=== PATIENT | male | born 1960 | race Asian ===

== ENCOUNTER 2023-08-19 07:53 | Emergency (ER) | payer OTHER, MEDICARE, SELFPAY ==
[2023-08-19 07:58] LABS: Glucose - Point of Care 165 mg/dl (70-99)
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
[2023-08-19 08:00] VITALS: BP 147/85; BMI 23.3
[2023-08-19 08:01] VITALS: BP 147/85
[2023-08-19] MEDS: NSS 500 IV (08:37)
[2023-08-19 08:42] LABS: % Eosinophils 3.4 % (0-6); % Immature Granulocytes 0.3 % (0-0.5); % Lymphocytes 19.7 % (20.5-51.1); % Monocytes 5.3 % (1.7-9.3); % Neutrophils 70.3 % (42.2-75.2); Absolute Basophils 0.1 10^3/uL (0-0.2); Absolute Eosinophils 0.2 10^3/uL (0-0.7); Absolute Lymphocytes 1.2 10^3/uL (1.2-3.4); Absolute Monocytes 0.3 10^3/uL (0.1-0.6); Absolute Neutrophils 4.4 10^3/uL (1.4-6.5); Hematocrit 42.4 % (39.0-52.0); Mean Corp Hgb Conc. 35.4 g/dL (33.0-37.0); Mean Corpuscular Hgb 31.4 pg (27.0-31.0); Mean Corpuscular Volume 88.9 fL (80.0-94.0); Mean Platelet Volume 9.2 fL (7.4-10.4); Nucleated Red Blood Cells % 0 % (-); Platelet Count 211 10^3/uL (130-400); Red Blood Cell Count 4.77 10^6/uL (4.70-6.10); Red Cell Dist. Width 11.5 % (11.5-14.5); White Blood Cell Count 6.3 10^3/uL (4.8-10.8)
[2023-08-19 09:03] VITALS: BP 139/67
[2023-08-19 09:39] LABS: ALT (SGPT) 23 U/L (0-50); AST (SGOT) 23 U/L (17-59); Albumin 4.5 g/dl (3.5-5.0); Alkaline Phosphatase 58 U/L (38-126); Blood Urea Nitrogen 19 mg/dl (9-20); Carbon Dioxide 28 mmol/L (22-30); Chloride 100 mmol/L (98-107); Estimated Creatinine Clearance 90 ml/min; Glucose 163 mg/dl (70-99); Potassium 4.4 mmol/L (3.5-5.1); Sodium 134 mmol/L (135-145); Total Bilirubin 0.9 mg/dl (0.2-1.3); Total Protein 7.3 g/dl (6.3-8.2); eGFR > 60.00
[2023-08-19 10:20] VITALS: BP 144/68
[2023-08-19 10:42] VITALS: BP 144/68
== END 2023-08-19 10:44 | disposition home or self-care (01) ==
LOC: EMR 07:53
PROVIDERS: EMERGENCY PHYSICIAN Student in an Organized Health Care Education/Training Program; FAMILY PHYSICIAN Internal Medicine
DX: R55 Syncope and collapse (principal); V99.XXXA Unspecified transport accident, initial encounter; Y92.410 Unspecified street and highway as the place of occurrence of the external cause
CPT/HCPCS: 99283; 96360; 80053; 82962; 85025; 93005

== ENCOUNTER → 2024-09-21 13:56 | Outpatient (REF) | payer MEDICARE, OTHER, SELFPAY | LOC: RCS 13:56 | PROVIDERS: ATTENDING PHYSICIAN Student in an Organized Health Care Education/Training Program | DX: R55 Syncope and collapse (principal) | CPT/HCPCS: 93017 ==

== ENCOUNTER 2024-09-21 16:09 | Inpatient (IN) | payer MEDICARE, OTHER, SELFPAY ==
[2024-09-21] VITALS (14 sets, daily range): BP systolic 115–174; BP diastolic 57–124; BMI 25.1; BMI 24.8
--- NOTE | 2024-09-21 15:25 | ED.GENMED ---
History of Present Illness
<Uche Tejeda PA-C - Last Filed: 09/21/24 16:02>
General
Chief Complaint: Cardiac Symptoms
Source: patient
Time Seen by Provider: 09/21/24 15:17
History of Present Illness
History of Present Illness:
64-year-old male with history of hypertension hyperlipidemia and prediabetes presents in referral from cardiology services. He was at stress test today and failed the stress test. I was notified by kids activities coach, Dr. Neff that he had [address]
depression during his stress test. He denies chest pain. He was given a full aspirin. No other complaints at this time
Past History
<Uche Tejeda PA-C - Last Filed: 09/21/24 16:02>
Past History
ED Past Medical History: HTN
ED Past Surgical History: None
Social History
Tobacco: Non-smoker
Alcohol: None
Phy Exam
<Uche Tejeda PA-C - Last Filed: 09/21/24 16:02>
Physical Exam
Physical Exam:
General: Well-appearing male no acute respiratory distress
HEENT: Normocephalic atraumatic
Heart: Regular rate and rhythm
Lungs: Clear no wheeze
Extremities: No cyanosis or edema
Course
<Uche Tejeda PA-C - Last Filed: 09/21/24 16:02>
Orders/Labs/Results
Orders:
Orders
09/21/24 15:18
Electrocardiogram (*1) Urgent
Reason for Study: Chest Pain
EKG- Treatment ONCE
09/21/24 15:20
Complete Blood Count/With Diff Urgent
Comprehensive Metabolic Panel Urgent
Glycohemoglobin (HgbA1c) Urgent
PTT Urgent
Prothrombin Time Urgent
Troponin I Urgent
09/21/24 15:28
Heparin 4,000 units IV NOW STA
09/21/24 15:[address] Non Medication Order As Directed
Physician Order: PTT 6 hours after initial start of Heparin infusion
09/21/24 15:30
Heparin [id number] Units/250 ml 25,000 units in 250 ml IV PER PROTOCOL
Weight to be used for heparin protocol in kilograms (kg):: 84
Protocol:: Cardiac Tx/Acute Coronary
PTT Goal Range to be used:: PTT 73 to 111 seconds
Order type:: Initial
INITIAL Infusion Dose (UNITS/KG/hr) & then follow protocol:: 12 units/kg/hr
Infusion Dose in UNITS/hr & then follow protocol (UNITS/hr):: 1,000
INFUSION RATE in mL/hr & then follow protocol (mL/hr):: 10
PTT less than or equal to 64 seconds:: Increase rate by 200 units/hr (+ 2 mL/hr)
PTT 64.1 to 72.9 seconds:: Increase rate by 100 units/hr (+ 1 mL/hr)
PTT 73 to 111 seconds:: Target Range. No change in rate.
PTT 111.1 to 130.9 seconds:: Decrease rate by 100 units/hr (- 1 mL/hr)
PTT 131 to 199.9 seconds:: HOLD for 1 hr. Then decrease rate by 200 units/hr (- 2 mL/hr)
PTT greater than or equal to 200 seconds:: HOLD for 2 hrs & Notify Provider. Then decrease by 200 units/hr (-
2 mL/hr)
Lab follow-up:: Each change, PTT q6h until 2 consecutive are therapeutic. Then PTT
daily.
09/21/24 15:31
Admit/Transfer Patient As Directed
Co-Sign Provider:
Level of Care: Inpatient admission
Assign to:: IVU
Physician / Group: CBC
Diagnosis: ACS
Reason for Hospitalization: ACS, requiring cardiac catherization
Expected length of stay greater than two midnights?: Yes
ELOS- Estimated Length of Stay in days: 3
I certify the patient meets the requirements for IP care: Yes
09/21/24 15:32
PRN Pain Medication Management As Directed
May give lesser potent ordered pain med per pt: Yes
preference::
Protocol:: Medication orders for pain may be administered in a
manner that supports deferring to patient preference
when the pt is:
- Requesting an ordered lesser potent pain medication.
Least to most potent pain medications are defined
as: acetaminophen < NSAID < tramadol < opioids
(morphine, oxycodone, hydromorphone).
- Requesting a lesser dose of the same medication IF
ORDERED.
- Requesting a less intrusive route of administration
if both routes are prescribed by the provider (PO <
IV).
09/21/24 15:33
Code Status As Directed
Resuscitation Status: Full Code
09/21/24 15:49
Add On- LAB Routine
Tests Added?: [email or web address]
Abnormal Lab Results
09/21/24
15:20
RBC 4.52 L 10^6/uL
(4.70-6.10)
MCH 31.2 H pg
(27.0-31.0)
Eosinophils % 6.3 H %
(0-6)
BUN 22 H mg/dl
(9-20)
Glucose 122 H mg/dl
(70-99)
Albumin 5.1 H g/dl
(3.5-5.0)
09/21/24 15:20
09/21/24 15:20
Vital Signs
Initial and Last Documented VS:
Initial Vital Signs
Temp Pulse Resp BP Pulse Ox
98 F 74 16 148/70 99
09/21/24 15:11 09/21/24 15:11 09/21/24 15:11 09/21/24 15:11 09/21/24 15:11
Last Documented Vital Signs
Temp Pulse Resp BP Pulse Ox
98 F 79 14 148/70 99
09/21/24 15:11 09/21/24 15:18 09/21/24 15:18 09/21/24 15:11 09/21/24 15:11
<Paulino Estrada, DO - Last Filed: 09/21/24 15:48>
Orders/Labs/Results
Orders:
Orders
09/21/24 15:18
Electrocardiogram (*1) Urgent
Reason for Study: Chest Pain
EKG- Treatment ONCE
09/21/24 15:20
Complete Blood Count/With Diff Urgent
Comprehensive Metabolic Panel Urgent
Glycohemoglobin (HgbA1c) Urgent
PTT Urgent
Prothrombin Time Urgent
Troponin I Urgent
09/21/24 15:28
Heparin 4,000 units IV NOW STA
09/21/24 15:[address] Non Medication Order As Directed
Physician Order: PTT 6 hours after initial start of Heparin infusion
09/21/24 15:30
Heparin 69702 Units/250 ml 25,000 units in 250 ml IV PER PROTOCOL
Weight to be used for heparin protocol in kilograms (kg):: 84
Protocol:: Cardiac Tx/Acute Coronary
PTT Goal Range to be used:: PTT 73 to 111 seconds
Order type:: Initial
INITIAL Infusion Dose (UNITS/KG/hr) & then follow protocol:: 12 units/kg/hr
Infusion Dose in UNITS/hr & then follow protocol (UNITS/hr):: 1,000
INFUSION RATE in mL/hr & then follow protocol (mL/hr):: 10
PTT less than or equal to 64 seconds:: Increase rate by 200 units/hr (+ 2 mL/hr)
PTT 64.1 to 72.9 seconds:: Increase rate by 100 units/hr (+ 1 mL/hr)
PTT 73 to 111 seconds:: Target Range. No change in rate.
PTT 111.1 to 130.9 seconds:: Decrease rate by 100 units/hr (- 1 mL/hr)
PTT 131 to 199.9 seconds:: HOLD for 1 hr. Then decrease rate by 200 units/hr (- 2 mL/hr)
PTT greater than or equal to 200 seconds:: HOLD for 2 hrs & Notify Provider. Then decrease by 200 units/hr (-
2 mL/hr)
Lab follow-up:: Each change, PTT q6h until 2 consecutive are therapeutic. Then PTT
daily.
09/21/24 15:31
Admit/Transfer Patient As Directed
Co-Sign Provider:
Level of Care: Inpatient admission
Assign to:: IVU
Physician / Group: CBC
Diagnosis: ACS
Reason for Hospitalization: ACS, requiring cardiac catherization
Expected length of stay greater than two midnights?: Yes
ELOS- Estimated Length of Stay in days: 3
I certify the patient meets the requirements for IP care: Yes
09/21/24 15:32
PRN Pain Medication Management As Directed
May give lesser potent ordered pain med per pt: Yes
preference::
Protocol:: Medication orders for pain may be administered in a
manner that supports deferring to patient preference
when the pt is:
- Requesting an ordered lesser potent pain medication.
Least to most potent pain medications are defined
as: acetaminophen < NSAID < tramadol < opioids
(morphine, oxycodone, hydromorphone).
- Requesting a lesser dose of the same medication IF
ORDERED.
- Requesting a less intrusive route of administration
if both routes are prescribed by the provider (PO <
IV).
09/21/24 15:33
Code Status As Directed
Resuscitation Status: Full Code
09/21/24 15:49
Add On- LAB Routine
Tests Added?: [email or web address]
Abnormal Lab Results
09/21/24
15:20
RBC 4.52 L 10^6/uL
(4.70-6.10)
MCH 31.2 H pg
(27.0-31.0)
Eosinophils % 6.3 H %
(0-6)
BUN 22 H mg/dl
(9-20)
Glucose 122 H mg/dl
(70-99)
Albumin 5.1 H g/dl
(3.5-5.0)
09/21/24 15:20
09/21/24 15:20
Vital Signs
Initial and Last Documented VS:
Initial Vital Signs
Temp Pulse Resp BP Pulse Ox
98 F 74 16 148/70 99
09/21/24 15:11 09/21/24 15:11 09/21/24 15:11 09/21/24 15:11 09/21/24 15:11
Last Documented Vital Signs
Temp Pulse Resp BP Pulse Ox
98 F 79 14 148/70 99
09/21/24 15:11 09/21/24 15:18 09/21/24 15:18 09/21/24 15:11 09/21/24 15:11
<Uche Tejeda PA-C - Last Filed: 09/21/24 16:02>
MDM/Problems Addressed
Differential Diagnosis Includes:
Failed stress test with ST depression during stress test. Patient denies chest pain. Vital signs are stable. Check labs EKG pending. Cardiology aware he is here
<GARY Arora Last Filed: 09/21/24 16:02>
*Critical Care Note
Total Time (30-74mins, 75-104mins- exclusive of procedures): Not Applicable
<GARY Arora Last Filed: 09/21/24 16:02>
Update Note
Update Note:
Troponin 0.014. Patient remained symptom-free. Discussed with emergency room attending. Will admit to cardiology service, heparin started
ED Attending Note
<Uche Tejeda PA-C - Last Filed: 09/21/24 16:02>
-
Portions of this chart may have been created with voice recognition software.� Occasional wrong word or��sound alike� substitutions may have occurred due to the inherent limitations of voice recognition software.
<Paulino Estrada DO - Last Filed: 09/21/24 15:48>
ED Attending Note
Patient seen and examined by attending physician: Yes
I performed the substantive portion of visit, reviewed & personally made and approve the management plan that is documented in note by myself or UDAY.: Yes
ED Attending Note:
I have seen and evaluated the patient with a [id number] encounter. I have spoken to the advance practicer provider and involved in the medical history, the physical exam, medical decision making.
Evaluation and management service: agree unless noted differently below.
Results interpretation: agree unless noted differently below.
Focused HPI: 64-year-old male presenting for evaluation of failed stress test. Cardiology walked over indicating the patient will require catheterization. Patient has been complaining of chest discomfort and exertion with pickleball. He
apparently failed his stress test. Patient currently symptom-free
Physical exam: Sitting bed comfortably. Heart regular rate and rhythm
Medical Decision Making: Per cardiology, will start heparin and admit to Warehouse Team Leader
Discharge Plan
Departure
Patient Disposition: Admit
Date of Disposition: 09/21/24
Time of Disposition: 16:01
Presentation/result/management discussed w/ accepting /: Aishwarya
Discharge Problem:
Failed stress test
Referrals:
Jordan Gotti MD [Family Provider] -
Interventions
Interventions:
*Risk Screen - Suicide Last Done: 09/21/24 15:12
*General Assessment Last Done: 09/21/24 15:24
*Neglect/Abuse Screening Last Done: 09/21/24 15:12
*ED- Fall Risk Assessment Last Done: 09/21/24 15:24
*ED COVID-19 Vaccine History Last Done: 09/21/24 15:24
ED- Pulmonary Assessment Last Done: 09/21/24 15:23
ED- Cardiac Assessment Last Done: 09/21/24 15:23
Discharge Date and Time
Print Language: LATVIAN
[2024-09-21 15:28] LABS: % Basophils 0.8 % (0-2); % Eosinophils 6.3 % (0-6); % Immature Granulocytes 0.3 % (0-0.5); % Lymphocytes 37.7 % (20.5-51.1); % Monocytes 7.7 % (1.7-9.3); % Neutrophils 47.2 % (42.2-75.2); Absolute Basophils 0.1 10^3/uL (0-0.2); Absolute Eosinophils 0.4 10^3/uL (0-0.7); Absolute Lymphocytes 2.4 10^3/uL (1.2-3.4); Absolute Monocytes 0.5 10^3/uL (0.1-0.6); Hematocrit 39.7 % (39.0-52.0); Hemoglobin 14.1 g/dL (13.0-18.0); Mean Corp Hgb Conc. 35.5 g/dL (33.0-37.0); Mean Corpuscular Hgb 31.2 pg (27.0-31.0); Mean Corpuscular Volume 87.8 fL (80.0-94.0); Mean Platelet Volume 9.8 fL (7.4-10.4); Nucleated Red Blood Cells % 0 % (-); Platelet Count 220 10^3/uL (130-400); Red Blood Cell Count 4.52 10^6/uL (4.70-6.10); Red Cell Dist. Width 11.7 % (11.5-14.5); White Blood Cell Count 6.4 10^3/uL (4.8-10.8)
--- NOTE | 2024-09-21 15:36 | HPS.HSE ---
Addendum entered and electronically signed by Varinder Neff MD 09/21/24 16:04:
64 yo male with PMH of HTN, dyslipidemia, DM presents to ED following high risk stress test. He had complained of pre-syncope and diaphoresis with exercise, and was referred for ETT. At rest, he has no complaints. Exam with RRR, no murmurs, no
edema. ETT: high risk DTS -11, with up to 4mm ST depression. Hgb and Cr are normal.
ACS/unstable angina. ASA 325mg, heparin drip.
-threat to life
-discussed with interventional cardiology: plan for cath today
Original Note:
Family Physician
-
Family Physician: Jordan Gotti
Primary Payroll And Benefits Analyst: Dr. Leonard Gaston
Chief Complaint
-
Shortness of breath
History of Present Illness
Gideon Claudio is a 64-year-old male with NIDDM, dyslipidemia and hypertension who presented for cardiovascular evaluation today. He was scheduled for an ETT after being evaluated by Dr. Estrada in the office for pre-syncope. He endorsed having more
significant sweating, lightheadedness with visual changes, rapid heart rate, and shortness of breath while playing pickle ball. Today, ETT revealed > [address] depression inferior with associated diaphoresis and shortness of breath. He was
referred to the ER for evaluation and admission. He did not have any chest pain.
Medical History
Past Medical History
Past Medical History: Reports HTN, Hypercholesterolemia and NIDDM
Past Surgical History: Reports Orthopedic
Social History
Tobacco: Non-smoker
Alcohol: None
Drug: None
Personal: Single
Employment: Retired
Family History
Family History: Not pertinent (Denies early CAD or SCD.)
Allergies / Home Medications
Allergies reflects when Allergies were last updated in [employer].
Home Medications with original date entered in [employer]
Allergy/Medication List:
Allergies:
Penicillin caused nausea and vomiting
Home medication list:
Lisinopril 10 mg daily
Atorvastatin 10 mg daily
Review of Systems
-
History Source: Patient
A 12 point ROS was completed and negative except as noted: Yes
Constitutional: Reports No Symptoms
EENT: Reports No Symptoms
Respiratory: Reports See HPI
Cardiac: Reports No Symptoms
Abdomen/GI: Reports No Symptoms
: Reports No Symptoms
Musculoskeletal: Reports No Symptoms
Neurological: Reports No Symptoms
Endocrine: Reports No Symptoms
Hematologic/Lymphatic: Reports No Symptoms
Psych: Reports No Symptoms
Physical Exam
Vital Signs
Vital Signs
Temp Pulse Resp BP Pulse Ox
98 F 79 14 148/70 99
09/21/24 15:11 09/21/24 15:18 09/21/24 15:18 09/21/24 15:11 09/21/24 15:11
Physical Exam
General: Well Developed, Well Nourished, No Apparent Distress and Comfortable
HEENT: NormoCephalic, Anicteric and Moist mucous membranes
Respiratory: Clear and Non Labored Respirations
Cardiac: S1/S2 and Regular Rhythm; No Peripheral Edema
Breast: Deferred by me
GI: Soft, Non Tender, Non Distended and Normal Bowel Sounds
Rectal: Deferred by Provider
Genito-urinary: No costovertebral tender
Musculoskeletal: No Clubbing, No Cyanosis and No Edema
Skin: Warm and Dry
Neuro: AO x 3
Hematologic/Lymphatic: No Lymphadenopathy
Psych: Calm and Intact Judgment/Insight
Laboratory Results
-
09/21/24 15:20
Data Reviewed
-
Diagnostic Radiology: Report Reviewed by me (Sinus rhythm, rate 75)
Lab Data: Labs Reviewed by me
Old Records: Reviewed
Impression/Plan
-
I/P: 64M with NIDDM, dyslipidemia, & HTN presented for ETT and had >3mm of inferior ST depression
Primary under presser: Dr. Estrada
Abnormal ETT, symptomatic with shortness of breath and diaphoresis
-Severe finding, threat to life
-ASA 324 given post stress test
-Hgba1c pending
-Cardiac catheterization today
-Echocardiogram
Hypertension
-Significantly elevated with exercise during ETT
-Follow, may need increase in medical therapy
Dyslipidemia
-LDL 55 (08/2023), increase to atorvastatin 20mg
Diabetes
-Hgba1c was 6.5% (11/2023), improved to 5.9% (02/2024)
[2024-09-21 15:44] LABS: PT 13.5 Sec (11.4-14.6)
[2024-09-21] MEDS: HEPARIN 4000 UNITS IV (15:46)
[2024-09-21 15:47] LABS: APTT 26.8 Sec (23.4-35.0)
[2024-09-21 15:52] LABS: Troponin I 0.014 ng/ml
[2024-09-21 15:57] LABS: ALT (SGPT) 30 U/L (0-50); AST (SGOT) 29 U/L (17-59); Albumin 5.1 g/dl (3.5-5.0); Alkaline Phosphatase 50 U/L (38-126); Blood Urea Nitrogen 22 mg/dl (9-20); Calcium 9.3 mg/dl (8.4-10.2); Carbon Dioxide 25 mmol/L (22-30); Chloride 103 mmol/L (98-107); Estimated Creatinine Clearance 89 ml/min; Glucose 122 mg/dl (70-99); Potassium 4.9 mmol/L (3.5-5.1); Sodium 140 mmol/L (135-145); Total Bilirubin 0.9 mg/dl (0.2-1.3); Total Protein 7.7 g/dl (6.3-8.2); eGFR > 60.00
[2024-09-21 16:44] LABS: ACT-LR - POC 335 Seconds (116-155)
--- NOTE | 2024-09-21 17:00 | CM ---
Telephone call to [facility] to check if they have Brilinta 90 mg po bid in stock. [facility] does not have Brilinta is stock. They would have to order it and it will not be in until Tuesday if ordered today. Telephone call to [facility] to check on co-pay for Brililnta. His first script would be $422.60 because of the deductible. After he mets his deductible his co-pay would be $105.60 a month. The [facility] [employer] [facility] [place] has Brilinta in stock and will need
a paper script to go with him to get the medication if he is going on Brilinta.
[2024-09-21 17:12] LABS: ACT-LR - POC 308 Seconds (116-155)
--- NOTE | 2024-09-21 18:15 | ITS.CL.PN ---
Addendum entered and electronically signed by Leonard Gaston MD 09/21/24 19:06:
Copy to: Dr. Leonard Estrada MD, PhD (instrument panel assembler); Sandra Gotti MD (PCP)
Original Note:
[facility] - Procedure Note
Procedure
Procedure Note:
CARDIAC CATHETERIZATION REPORT
Date of Procedure: 09/21/2024
Referring: Dr. Wander Neff MD, PhD
Indication: anginal chest pain, high risk stress test
PROCEDURE(S)
1. left heart catheterization
2. coronary angiography
3. iFR LAD
4. IVUS LAD
5. PCI with FADI to LAD
ACCESS: 6F right radial artery (closure: radial band)
CATHETERS
1. 6F JR4
2. 6F JL4
3. 6F XB3.5 guide
MODERATE SEDATION: 90 minutes of moderate sedation was utilized. An independent medical billing manager was present to assist with and help manage the patient's level of consciousness and physiologic status.
HEMODYNAMIC DATA
LV 132/2 (EDP 11) mmHg
AO 136/71 (mean 96) mmHg
CORONARY ANGIOGRAPHY
Dominance: Right
LM: Large, normal
LAD: Large vessel giving rise to a moderate caliber D1 and moderate caliber D2. There is a focal 40% stenosis in the proximal LAD before the D1. There is a long segment of moderate disease spanning from the D1 takeoff distally approximately 20 mm.
There is a second long segment of moderate disease spanning from just after the takeoff of the D2 distally approximately 20 mm. There is moderate ostial disease of the D1. The LAD was further assessed by iFR.
LCx: Moderate caliber vessel giving rise to a moderate caliber branching OM1, small OM2,and small LPL branch. There is diffuse disease in the proximal OM1 and a focal 50% stenosis just before the vessel bifurcates.
RCA: Moderate caliber vessel giving rise to a small RPDA, small RPL1, and large RPL2. There is a focal 50% stenosis in the mid body of the small RPL1.
iFR of LAD
An Omni wire was flushed and zeroed outside the body and then advanced to the left main. The wire introducer was removed and the catheter flushed with saline, after which pressure of the wire and guide were normalized. The wire was advanced to the
distal LAD and iFR recorded at 0.70. iFR pullback was performed noting a focal pattern with reduction of iFR to 0.80 after crossing the distal segment of disease and return to 1.0 after crossing the proximal segment of disease suggesting that the
proximal segment of disease is hemodynamically significant. On return to the left main, iFR appropriately normalized to ~1.0, confirming lack of wire drift.
IVUS guided PCI with FADI to proximal to mid LAD
Heparin was given to achieve ACT greater than 300. A Runthrough coronary wire was placed in the distal LAD and a protection BMW wire in the D1. Initial lesion preparation was performed with a 2.0 semicompliant balloon after which the IVUS catheter
was unable to pass. Additional lesion preparation was performed with a 2.5 mm noncompliant balloon after which IVUS was successfully performed demonstrating a 3.0 mm distal reference vessel diameter in the mid LAD and a 3.75 mm proximal reference
diameter in the proximal LAD. A 3.0 x 30 mm [place] frontier drug-eluting stent was delivered and deployed at nominal pressure followed by rewiring of the D1 through stent struts which required a Whisper wire and was achieved with some difficulty. The
proximal LAD was then stented with an overlapping 3.5x15 mm [place] frontier drug-eluting stent. Rewiring of the D1 was again performed through stent struts using a Whisper wire with some difficulty. Post dilation of the stented segment proximal to the
diagonal was performed with a 3.5x12 mm noncompliant balloon taken to 16 michael distally, 18 michael to the proximal stent edge, and 20 michael in the mid body where there was mild underexpansion that resolved with NC ballooning. Final angiography demonstrated
an excellent result with full stent expansion and no evidence of edge dissection. The wire and guide were removed and a TR band placed.
RADIATION: dose 1284.92 mGy; DAP 74.4116 Gy*cm2; fluoroscopy time 32.9 min
CONCLUSIONS
1. Coronary artery disease as described with iFR positive stenosis in the proximal to mid LAD
2. Successful IVUS-guided PCI of the proximal to mid LAD with placement of overlapping 3.0 x 30 mm and 3.5 x 15 mm [place] drug-eluting stents postdilated proximally to high-pressure with an NC balloon.
3. Normal LV filling pressure and no aortic stenosis.
RECOMMENDATIONS
1. Aggressive secondary prevention of coronary artery disease with goal LDL less than 55. Check lipoprotein(a). Aggressive risk factor modification.
2. Dual antiplatelet therapy with aspirin and Plavix for 1 year given length of territory stented and low bleeding risk.
3. Cardiac rehab.
4. Cancel outpatient coronary calcium score.
Copy to: Dr. Leonard Estrada MD, PhD (instrument panel assembler); [ ] (PCP)
Signed: Leonard Gaston MD, PhD
[2024-09-21] MEDS: LIPITOR 40 MG PO (18:41)
--- NOTE | 2024-09-21 19:12 | PTCARENOTE ---
~[id number]: Received handoff report form CCL. Patient brought over via bed to unit. Pt Aox4, NSR on tele, RA. R radial TR band in place. 2/2 pulses present. Pt denies pain at this time. Pt oriented to unit and call [facility] system. Admission charting
completed. All needs met at this time, call [facility] within reach. Handoff report given to nightshift RN.
[2024-09-21] MEDS: NSS 1000 IV (19:48)
--- NOTE | 2024-09-21 22:00 | PTCARENOTE ---
Patient received at change of shift resting in the bed. Right radial TR band intact, pulse ox 98-99%. Bilateral radial pulses palpable. Sinus rhythm on telemetry. Patient denies chest pain. Post PCI fluids infusing as ordered. Following bedrest
patient ambulated in room, standby assist, denies feeling lightheaded or dizzy. Plan of care discussed with patient. Call [facility]ero within reach. Care ongoing.
[2024-09-22 03:09] VITALS: BP 129/73
[2024-09-22 03:27] LABS: Hematocrit 36.7 % (39.0-52.0); Hemoglobin 13.3 g/dL (13.0-18.0); Mean Corp Hgb Conc. 36.2 g/dL (33.0-37.0); Mean Corpuscular Hgb 31.8 pg (27.0-31.0); Mean Corpuscular Volume 87.8 fL (80.0-94.0); Mean Platelet Volume 9.3 fL (7.4-10.4); Platelet Count 178 10^3/uL (130-400); Red Blood Cell Count 4.18 10^6/uL (4.70-6.10); Red Cell Dist. Width 11.8 % (11.5-14.5); White Blood Cell Count 7.5 10^3/uL (4.8-10.8)
[2024-09-22 03:53] LABS: Blood Urea Nitrogen 16 mg/dl (9-20); Calcium 8.6 mg/dl (8.4-10.2); Carbon Dioxide 27 mmol/L (22-30); Chloride 105 mmol/L (98-107); Estimated Creatinine Clearance 114 ml/min; Glucose 129 mg/dl (70-99); HDL Cholesterol 38 mg/dl; LDL Cholesterol, Calculated 65 mg/dl; Potassium 4.4 mmol/L (3.5-5.1); Sodium 137 mmol/L (135-145); Total Cholesterol 123 mg/dl (50-199); Triglyceride 100 mg/dl (10-149); Very Low Density Lipoprotein 20 mg/dl (0-30); eGFR > 60.00
--- NOTE | 2024-09-22 07:40 | PTCARENOTE ---
Assumed care of pt from prev nsg shift; pt AAOx3 w/no c/o CP or SOB. Pt's VSS w/HR in the 60's & BP 138/71 this AM. Pt w/ R radial site w/dressing C/D/I w/no signs or symptoms of bleeding or hematoma. Pt anticipating D/C today. Call [facility] within
reach & no addtl needs at this time. Plan of care ongoing.
[2024-09-22 08:27] LABS: Glycohemoglobin (HgbA1c) 6.3 % (4.0-5.6)
[2024-09-22 08:46] VITALS: BP 138/71
[2024-09-22] MEDS: LOW STRENGTH ASPIRIN 81 MG PO (08:47)
[2024-09-22] MEDS: ZESTRIL 10 MG PO (08:47)
[2024-09-22] MEDS: PLAVIX 75 MG PO (08:47)
--- NOTE | 2024-09-22 09:23 | W.PN.UPDATE ---
Update Note
Progress Note Update
s/p LAD overlapping stents for unstable angina. Continues on ASA/Plavix. No chest pain. Exam with RRR, no murmurs, no edema. No arrhythmia on tele. Labs stable. Discharge planning.
--- NOTE | 2024-09-22 09:24 | W.DS.TRANS ---
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
-
Discharge Instructions:
Discharge Diagnosis/Procedures Angioplasty with stent to LAD
Diet Low Cholesterol,Diabetic, Carb Controlled
Driving Restrictions No driving for 24 hours
Other Services Cardiac Rehab
Instructions:
Stand-Alone Forms: DC Instructions- Cath/EP Lab
Changes to Home Medications: Yes
Discharge Medications:
DC Medications w/original date entered in [facility]
aspirin 81 mg chewable tablet 81 mg PO DAILY #1 tab 09/21/24
atorvastatin 40 mg tablet 40 mg PO QPM #90 tabs 09/21/24
clopidogrel 75 mg tablet 75 mg PO DAILY #90 tabs 09/21/24
lisinopril 10 mg tablet 10 mg PO DAILY #1 tab 09/21/24
Home Medication Changes
New meds: ASA 81mg, plavix 75mg daily, atorvastatin 40mg daily.
Pending Results: No
Total time spent discharging patient (in min): 40
--- NOTE | 2024-09-22 11:45 | PTCARENOTE ---
Pt's IV line & telemetry pack D/C'd; Discussed D/C instructions, CAD booklet, & ACS/CAD Medication info sheet w/pt. Questions answered & emotional support provided. Pt left w/personal belongings incl cell phone & via WC w/sister driving pt home.
[2024-09-23 23:38] LABS: Lipoprotein a (Lp a) <6 mg/dL (<=29)
== END 2024-09-22 11:45 | disposition home or self-care (01) | DRG 322 ==
LOC: IVU 16:09
PROVIDERS: Nurse Practitioner Adult Health; Nurse Practitioner Gerontology; Physician Assistant; Student in an Organized Health Care Education/Training Program; ADMITTING PHYSICIAN Internal Medicine; EMERGENCY PHYSICIAN Student in an Organized Health Care Education/Training Program; FAMILY PHYSICIAN Internal Medicine
PROC: B241ZZ3 Ultrasonography of Multiple Coronary Arteries, Intravascular (ICD-10-PCS; 2024-09-21)
PROC: 4A033BC Measurement of Arterial Pressure, Coronary, Percutaneous Approach (ICD-10-PCS; 2024-09-21)
PROC: 4A023N7 Measurement of Cardiac Sampling and Pressure, Left Heart, Percutaneous Approach (ICD-10-PCS; 2024-09-21)
PROC: B2111ZZ Fluoroscopy of Multiple Coronary Arteries using Low Osmolar Contrast (ICD-10-PCS; 2024-09-21)
PROC: B2151ZZ Fluoroscopy of Left Heart using Low Osmolar Contrast (ICD-10-PCS; 2024-09-21)
PROC: 027034Z Dilation of Coronary Artery, One Artery with Drug-eluting Intraluminal Device, Percutaneous Approach (ICD-10-PCS; 2024-09-21)
DX: I25.110 Atherosclerotic heart disease of native coronary artery with unstable angina pectoris (principal); I10 Essential (primary) hypertension; E11.9 Type 2 diabetes mellitus without complications
CPT/HCPCS: 93017; 80048; 80053; 80061; 83036; 83695; 84484; 85025; 85027; 85347; 85610; 85730; 92978; 93005; 93458; 93799; 96374; 99152; 99153; 99284; C1725; C1753; C1769; C1874; C1887; C1894; C9600; Q9967

== ENCOUNTER → 2024-09-28 13:43 | Outpatient (REF) | payer MEDICARE, OTHER, SELFPAY | LOC: HWRCS 13:43 | PROVIDERS: ATTENDING PHYSICIAN Student in an Organized Health Care Education/Training Program; FAMILY PHYSICIAN Internal Medicine | DX: R55 Syncope and collapse (principal) | CPT/HCPCS: 93306 ==

== ENCOUNTER 2024-11-12 14:31 | Outpatient (RCR) | payer MEDICARE, OTHER, SELFPAY | END 2024-11-12 23:59 | disposition home or self-care (01) | LOC: CRHB 14:31 | PROVIDERS: ATTENDING PHYSICIAN Internal Medicine | DX: I25.10 Atherosclerotic heart disease of native coronary artery without angina pectoris (principal); Z95.5 Presence of coronary angioplasty implant and graft | CPT/HCPCS: 93797; 93798; G0422; G0423 ==

== ENCOUNTER 2024-12-12 13:47 | Outpatient (RCR) | payer MEDICARE, OTHER, SELFPAY | END 2024-12-12 23:59 | disposition home or self-care (01) | LOC: CRHB 13:47 | PROVIDERS: ATTENDING PHYSICIAN Internal Medicine; FAMILY PHYSICIAN Internal Medicine | DX: I25.10 Atherosclerotic heart disease of native coronary artery without angina pectoris (principal); Z95.5 Presence of coronary angioplasty implant and graft | CPT/HCPCS: 93797; 93798; G0422; G0423 ==

== ENCOUNTER 2024-12-26 14:26 | Outpatient (RCR) | payer MEDICARE, OTHER, SELFPAY | END 2025-01-02 14:23 | disposition home or self-care (01) | LOC: CRHB 14:26 | PROVIDERS: ATTENDING PHYSICIAN Internal Medicine; FAMILY PHYSICIAN Internal Medicine | DX: I25.10 Atherosclerotic heart disease of native coronary artery without angina pectoris (principal); Z95.5 Presence of coronary angioplasty implant and graft | CPT/HCPCS: G0422; G0423 ==